=== PATIENT | male | born 2000 | race Caucasian/White ===

== ENCOUNTER 2020-03-18 07:33 | Emergency (ER) | payer OTHER ==
[2020-03-18 07:42] VITALS: BP 111/67
--- NOTE | 2020-03-18 07:52 | ED Physician Documentation ---
PD HPI UPPER EXT INJURY - Stated complaint Stated Complaint: BURN LT HAND - Chief complaint Chief Complaint: Burn - History obtained from History obtained from: Patient - History of Present Illness Location: Left, Hand Type of injury: Burn (accidentally put hand on still hot stovetop (electric), with yi on palm and fingers. Hurting today, so hard to do work. Referred to ER.) Worsened by: Moving, Palpating Associated symptoms: No: Weakness, Numbness Similar symptoms before: Has not had sx before Review of Systems Constitutional: denies: Fever Nose: denies: Rhinorrhea / runny nose, Congestion Throat: denies: Sore throat Respiratory: denies: Cough Neurologic: denies: Focal weakness, Numbness PD PAST MEDICAL HISTORY - Past Medical History Past Medical History: No - Present Medications Home Medications: Ambulatory Orders Medication Instructions Recorded Confirmed No Known Home Medications 03/18/20 03/18/20 - Allergies Allergies/Adverse Reactions: Allergies Allergy/AdvReac Type Severity Reaction Status Date / Time No Known Drug Allergies Allergy Verified 03/18/20 07:41 PD ED PE NORMAL - Vitals Vital signs reviewed: Yes - General General: Alert and oriented X 3, No acute distress, Well developed/nourished - Derm Derm: Normal color, Warm and dry - Extremities Extremities: Other (The right correction left palm and distal phalanges show patterned partial-thickness yi with some mild blistering and circular pattern consistent with a electric stovetop. There are no full-thickness yi. The do not cross flexion creases. He has normal sensation in the fingertips. He is [age]) - Neuro Neuro: No motor deficit, No sensory deficit Results - Vitals Vitals: Vital Signs - 24 hr 03/18/20 07:37 Temperature 36.2 C L Heart Rate 51 L Respiratory 16 Rate Blood Pressure 111/67 O2 Saturation 100 Oxygen O2 Source Room air PD MEDICAL DECISION MAKING - ED course Complexity details: considered differential (Partial-thickness yi. They look like they will heal okay. Mainly they are hindering use of his hand and you supposed to be working today. He is given a work note for couple of days.), d/w patient Departure - Departure Disposition: 01 Home, Self Care Clinical Impression: Burn, hands, second degree Qualifiers: Encounter type: initial encounter Burn of hand location: multiple sites Laterality: left Qualified Code(s): T23.292A - Burn of second degree of multiple sites of left wrist and hand, initial encounter Condition: Stable Record reviewed to determine appropriate education?: Yes Instructions: ED Burn D 2nd Follow-Up: CARINE Cummins [Provider Group] Comments: Minimal to no use of the left hand for 2 days due to the burn and tenderness. Keep it bandaged for comfort. Ibuprofen 3 times a day. Add Tylenol if needed. Recheck if signs of infection. Forms: Activity restrictions Discharge Date/Time: 03/18/20 08:31
[2020-03-18] MEDS ORDERED: ACETAMINOPHEN 325 MG TABLET PO STA (08:01)
[2020-03-18] MEDS ORDERED: IBUPROFEN 600 MG TABLET PO STA (08:01)
[2020-03-18] MEDS ORDERED: BACITRACIN ZINC OINT 1 PACKET TOP STA (08:01)
== END 2020-03-18 08:31 | disposition home or self-care (01) ==
LOC: ED 07:33
DX: T23.252A Burn of second degree of left palm, initial encounter (principal); T23.232A Burn of second degree of multiple left fingers (nail), not including thumb, initial encounter; X15.0XXA Contact with hot stove (kitchen), initial encounter
CPT/HCPCS: 99282; 99283; A9270

== ENCOUNTER 2020-12-11 03:30 | Emergency (ER) | payer OTHER ==
[2020-12-11 03:59] VITALS: BP 124/56
--- NOTE | 2020-12-11 04:11 | ED Physician Documentation ---
PD HPI LOWER EXT INJURY - Stated complaint Stated Complaint: R KNEE PX - Chief complaint Chief Complaint: Trauma Ext - History obtained from History obtained from: Patient - History of Present Illness PD HPI LOW EXT INJURY LOCATION: Right, Knee Type of injury: Other (carrying his ) Where injury occurred: Home Timing - onset: Today Timing - duration: Hours Timing - details: Abrupt onset, Still present Improved by: Rest, Immobilization Worsened by: Moving, Palpating Associated symptoms: Swelling. No: Weakness, Numbness, Tingling Contributing factors: No: Anticoagulated Similar symptoms before: Diagnosis (knee sprain) Recently seen: Not recently seen - Additional information Additional information: 20-year-old male reports that he was carrying his today when his knee gave out on him. He states that he felt that it bent the wrong way and this is something that has happened to him 4 times previously. Initially had this happen when he backed into a cart and he ended up being in a knee immobilizer for about 3 months. He is subsequently started physical therapy to increase his strength of his leg and knee and each time this has happened, the length of time required for the knee immobilizer is less and the pain is less. He has not been in to see orthopedics. Review of Systems Constitutional: denies: Fever Throat: denies: Sore throat Respiratory: denies: Cough GI: denies: Vomiting Skin: denies: Rash Musculoskeletal: reports: Joint pain, Joint swelling, Pain with weight bearing. denies: Neck pain, Back pain Neurologic: denies: Generalized weakness, Focal weakness, Numbness PD PAST MEDICAL HISTORY - Past Medical History Past Medical History: Yes Psych: Depression - Past Surgical History Past Surgical History: No - Present Medications Home Medications: Ambulatory Orders Medication Instructions Recorded Confirmed DULoxetine [Cymbalta] 40 mg PO DAILY 12/11/20 12/11/20 - Allergies Allergies/Adverse Reactions: Allergies Allergy/AdvReac Type Severity Reaction Status Date / Time No Known Drug Allergies Allergy Verified 12/11/20 03:59 - Social History Does the pt smoke?: Yes Smoking Status: Current every day smoker Does the pt drink ETOH?: No Does the pt have substance abuse?: No - Immunizations Immunizations are current?: Yes - POLST Patient has POLST: No PD ED PE NORMAL - Vitals Vital signs reviewed: Yes (normal ) - General General: Alert and oriented X 3, No acute distress, Well developed/nourished - HEENT HEENT: Atraumatic, PERRL, EOMI - Respiratory Respiratory: No respiratory distress - Derm Derm: Normal color, Warm and dry, No rash - Extremities Extremities: No deformity, No edema, Other (Exam of the right knee demonstrates some mild swelling above the patella the patella patella is lax. There is no laxity to the medial or lateral collateral ligaments the anterior drawer is negative.) - Neuro Neuro: Alert and oriented X 3, copyman 2-12 intact, No motor deficit, No sensory deficit, Normal speech Eye Opening: Spontaneous Motor: Obeys Commands Verbal: Oriented GCS Score: 15 - Psych Psych: Normal mood, Normal affect Results - Vitals Vitals: Vital Signs - 24 hr 12/11/20 03:40 Temperature 36.6 C Heart Rate 65 Respiratory 16 Rate Blood Pressure 124/56 L O2 Saturation 99 Oxygen O2 Source Room air - Rads (name of study) right knee Radiology: Prelim report reviewed (Impression: No acute trauma identified. Loose intra-articular body may be related to osteochondral lesion of the lateral femoral condyle. If not previously evaluated, an MRI is recommended for further assessment.), EMP read indepedently, See rad report PD MEDICAL DECISION MAKING - ED course Complexity details: reviewed old records, reviewed results, re-evaluated patient, considered differential, d/w patient ED course: 21-year-old male with recurrent knee sprain is again injured his knee and on examination today we are finding stable ligaments and a loose intra-articular b ruth that appears to be under the patella. The patient is comfortable back into a knee immobilizer and I have recommended he have an MR done of his knee and I have recommended he follow-up with his primary to get this started with an orthopedic follow-up. Departure - Departure Disposition: 01 Home, Self Care Clinical Impression: Knee injury Qualifiers: Encounter type: initial encounter Laterality: right Qualified Code(s): S89.91XA - Unspecified injury of right lower leg, initial encounter Condition: Stable Instructions: ED Sprain Knee Follow-Up: CARINE Cummins [Provider Group] [facility] [Provider Group] Comments: A in the emergency department appears you have sprained your knee and the recommendation is to wear the knee immobilizer as needed until you are able to walk without pain or feeling of instability. On your plain film x-ray there is a loose intra-articular body or a small bone that does not belong underneath the patella. A follow-up MRI of your knee is recommended and this can be ordered by your primary care doctor at [facility]. A follow-up with orthopedics is recommended. Forms: Activity restrictions
--- NOTE | 2020-12-11 11:11 | XRAY Report ---
PROCEDURE: Knee 4 View RT INDICATIONS: patellar dislocation (spont reduced) TECHNIQUE: 3 views of the right knee(s) were acquired. COMPARISON: None. FINDINGS: Bones: No fractures or dislocations. There is a subtle focus of sclerosis in the subchondral portion of the lateral femoral condyle. Soft tissues: No joint effusion. No suspicious soft tissue calcifications. IMPRESSION: No visualized acute fracture or dislocation. However, occult injury cannot be excluded. Recommend short interval imaging follow-up in 7-10 days as clinically indicated for additional evalua tion. Loose intra-articular body and/or osteochondral lesion of lateral femoral condyle as above. As clinic ally indicated, MRI may be obtained for additional evaluation. The above findings are concordant with preliminary report. Reviewed by: Nasima Potter MD on 12/11/2020 11:10 AM PDT Approved by: Nasima Potter MD on 12/11/2020 11:10 AM PDT Station ID: [id number]
== END 2020-12-11 05:12 | disposition home or self-care (01) ==
LOC: ED 03:30
DX: S89.91XA Unspecified injury of right lower leg, initial encounter (principal); X50.1XXA Overexertion from prolonged static or awkward postures, initial encounter; Y93.89 Activity, other specified; Y92.009 Unspecified place in unspecified non-institutional (private) residence as the place of occurrence of the external cause; F17.200 Nicotine dependence, unspecified, uncomplicated
CPT/HCPCS: 99282; 99283

== ENCOUNTER 2022-01-17 17:00 | Emergency (ER) | payer OTHER ==
[2022-01-17 17:22] VITALS: BP 122/65
[2022-01-17 17:36] LABS: BASOPHILS # (AUTO) 0.1 10^3/uL (0.0-0.1); BASOPHILS % (AUTO) 1.1 %; EOSINOPHILS # (AUTO) 0.2 10^3/uL (0.0-0.7); EOSINOPHILS % (AUTO) 2.8 %; HCT - HEMATOCRIT 44.5 % (42.0-52.0); HGB - HEMOGLOBIN 14.5 g/dL (14.0-18.0); LYMPHOCYTES # (AUTO) 1.5 10^3/uL (1.5-3.5); LYMPHOCYTES % (AUTO) 24.9 %; MEAN CORPUSCULAR HEMOGLOBIN 29.5 pg (27.0-31.0); MEAN CORPUSCULAR HGB CONC 32.6 g/dL (32.0-36.0); MEAN CORPUSCULAR VOLUME 90.6 fL (80.0-94.0); MEAN PLATELET VOLUME 10.4 fL (7.4-11.4); MONOCYTES # (AUTO) 0.5 10^3/uL (0.0-1.0); MONOCYTES % (AUTO) 7.8 %; NEUTROPHILS # (AUTO) 3.9 10^3/uL (1.5-6.6); NEUTROPHILS % (AUTO) 63.2 %; PLT - PLATELET COUNT 202 10^3/uL (130-450); RED BLOOD COUNT 4.91 10^6/uL (4.70-6.10); WHITE BLOOD COUNT 6.1 x10^3/uL (4.8-10.8)
--- NOTE | 2022-01-17 17:42 | ED Physician Documentation ---
PD HPI MHE - Stated complaint Stated Complaint: SI - Chief complaint Chief Complaint: MHE - History obtained from History obtained from: Patient - Additional information Additional information: 21-year-old gentleman with history of depression presents from [place] [employer] [place]. He has been suicidal with thoughts of self cutting today. He has self cut before but it was not particularly for self-harm but today was with suicidal ideation. Review of Systems Ten Systems: 10 systems reviewed and negative Constitutional: reports: Reviewed and negative Cardiac: reports: Reviewed and negative Respiratory: reports: Reviewed and negative PD PAST MEDICAL HISTORY - Past Medical History Psych: Depression - Past Surgical History Past Surgical History: No - Present Medications Home Medications: Ambulatory Orders Medication Instructions Recorded Confirmed buPROPion [Wellbutrin Xl] 300 mg PO DAILY 01/17/22 01/17/22 busPIRone [Buspar] 10 mg PO TID 01/17/22 01/17/22 - Allergies Allergies/Adverse Reactions: Allergies Allergy/AdvReac Type Severity Reaction Status Date / Time No Known Drug Allergies Allergy Verified 01/17/22 17:22 - Social History Does the pt smoke?: Yes Smoking Status: Current every day smoker Does the pt drink ETOH?: No Does the pt have substance abuse?: No - Immunizations Immunizations are current?: Yes - POLST Patient has POLST: No PD ED PE NORMAL - Vitals Vital signs reviewed: Yes - General General: Alert and oriented X 3, No acute distress - HEENT HEENT: PERRL, EOMI - Neck Neck: Supple, no meningeal sign, No bony TTP - Cardiac Cardiac: RRR, No murmur - Respiratory Respiratory: No respiratory distress, Clear bilaterally - Abdomen Abdomen: Normal bowel sounds, Soft, Non tender - Back Back: No CVA TTP, No spinal TTP - Derm Derm: Normal color, Warm and dry - Extremities Extremities: Other (Old well-healed self cutting scars on the left forearm) - Neuro Neuro: Alert and oriented X 3, Normal speech Results - Vitals Vitals: Vital Signs - 24 hr 01/17/22 17:06 Temperature 36.8 C Heart Rate 68 Respiratory 14 Rate Blood Pressure 122/65 O2 Saturation 100 Oxygen O2 Source Room air - Labs Labs: Laboratory Tests 01/17/22 01/17/22 01/17/22 17:23 17:23 17:30 WBC 6.1 RBC 4.91 Hgb 14.5 Hct 44.5 MCV 90.6 MCH 29.5 MCHC 32.6 RDW 12.0 Plt Count 202 MPV 10.4 Neut # (Auto) 3.9 Lymph # (Auto) 1.5 [place] # (Auto) 0.5 Eos # (Auto) 0.2 Baso # (Auto) 0.1 Absolute Nucleated RBC 0.00 Nucleated RBC % 0.0 Sodium Potassium Chloride Carbon Dioxide Anion Gap BUN Creatinine Estimated GFR (MDRD) Glucose Calcium Total Bilirubin AST ALT Alkaline Phosphatase Total Protein Albumin Globulin Albumin/Globulin Ratio Lipase TSH Urine Color YELLOW Urine Clarity CLEAR Urine pH 6.0 Ur Specific [place] 1.025 Urine Protein NEGATIVE Urine Glucose (UA) NEGATIVE Urine Ketones NEGATIVE Urine Occult Blood NEGATIVE Urine Nitrite NEGATIVE Urine Bilirubin NEGATIVE Urine Urobilinogen 0.2 (NORMAL) Ur Leukocyte Esterase NEGATIVE Ur Microscopic Review NOT INDICATED Urine Culture Comments NOT INDICATED Salicylates Urine Opiates Screen NEGATIVE Ur Oxycodone Screen NEGATIVE Urine Methadone Screen NEGATIVE Ur Propoxyphene Screen NEGATIVE Acetaminophen Ur Barbiturates Screen NEGATIVE Ur Tricyclics Screen NEGATIVE Ur Phencyclidine Scrn NEGATIVE Ur Amphetamine Screen NEGATIVE U Methamphetamines Scrn NEGATIVE U Benzodiazepines Scrn NEGATIVE Urine Cocaine Screen NEGATIVE U Cannabinoids Screen NEGATIVE Ethyl Alcohol SARS-CoV-2 (PCR) NOT DETECTED 01/17/22 01/17/22 17:30 17:30 WBC RBC Hgb Hct MCV MCH MCHC RDW Plt Count MPV Neut # (Auto) Lymph # (Auto) [place] # (Auto) Eos # (Auto) Baso # (Auto) Absolute Nucleated RBC Nucleated RBC % Sodium 139 Potassium 4.6 Chloride 102 Carbon Dioxide 27 Anion Gap 10.0 BUN 13 Creatinine 0.9 Estimated GFR (MDRD) 107 Glucose 97 Calcium 9.3 Total Bilirubin 0.3 AST 24 ALT 36 Alkaline Phosphatase 48 Total Protein 7.4 Albumin 4.3 Globulin 3.1 Albumin/Globulin Ratio 1.4 Lipase 30 TSH 1.43 Urine Color Urine Clarity Urine pH Ur Specific [place] Urine Protein Urine Glucose (UA) Urine Ketones Urine Occult Blood Urine Nitrite Urine Bilirubin Urine Urobilinogen Ur Leukocyte Esterase Ur Microscopic Review Urine Culture Comments Salicylates < 6.0 Urine Opiates Screen Ur Oxycodone Screen Urine Methadone Screen Ur Propoxyphene Screen Acetaminophen < 10 L Ur Barbiturates Screen Ur Tricyclics Screen Ur Phencyclidine Scrn Ur Amphetamine Screen U Methamphetamines Scrn U Benzodiazepines Scrn Urine Cocaine Screen U Cannabinoids Screen Ethyl Alcohol < 5.0 SARS-CoV-2 (PCR) PD MEDICAL DECISION MAKING - ED course ED course: 21-year-old gentleman presents with active suicidal ideation. He is medically clear for psychiatric treatment and he was accepted graciously by Dr. Thompson, behavioral health specialist to [facility] at approximately 7 PM and cobras were completed. Departure - Departure Disposition: 65 Psych Hosp/Unit DC/Xfer Clinical Impression: Anxiety, Depression Condition: Stable
[2022-01-17 17:43] LABS: MUDS CUTOFF CONCENTRATIONS CUTOFF CONC BELOW:
[2022-01-17 17:51] LABS: ACETAMINOPHEN < 10 ug/mL (10-30); ALBUMIN 4.3 g/dL (3.2-5.5); ALBUMIN/GLOBULIN RATIO 1.4 (1.0-2.2); ALKALINE PHOSPHATASE 48 IU/L (42-121); ALT ALANINE AMINOTRANSFERASE 36 IU/L (10-60); AST ASPARTATE AMINOTRANSFERASE 24 IU/L (10-42); BILIRUBIN,TOTAL 0.3 mg/dL (0.2-1.0); BUN - BLOOD UREA NITROGEN 13 mg/dL (6-20); CALCIUM 9.3 mg/dL (8.5-10.3); CARBON DIOXIDE - CO2 27 mmol/L (21-32); CHLORIDE 102 mmol/L (101-111); CREATININE 0.9 mg/dL (0.6-1.2); ETOH - ETHANOL < 5.0 mg/dL; GFR - MDRD 107 (>89); GLUCOSE 97 mg/dL (70-100); LIPASE 30 U/L (22-51); POTASSIUM 4.6 mmol/L (3.5-5.0); SALICYLATE < 6.0 mg/dL; SODIUM 139 mmol/L (135-145); TOTAL PROTEIN 7.4 g/dL (6.7-8.2)
[2022-01-17 17:57] LABS: BILIRUBIN,URINE NEGATIVE (NEGATIVE); CLARITY,URINE CLEAR (CLEAR); GLUCOSE, URINE (UA) NEGATIVE (NEGATIVE); KETONES,URINE (UA) NEGATIVE (NEGATIVE); LEUKOCYTE ESTERASE, URINE NEGATIVE (NEGATIVE); NITRITE,URINE NEGATIVE (NEGATIVE); OCCULT BLOOD,URINE NEGATIVE (NEGATIVE); PROTEIN,URINE NEGATIVE (NEGATIVE); UROBILINOGEN,URINE 0.2 (NORMAL) E.U./dL (NORMAL)
[2022-01-17 18:09] LABS: AMPHETAMINE SCREEN,URINE NEGATIVE (NEGATIVE); BARBITURATE SCREEN,UR NEGATIVE (NEGATIVE); BENZODIAZEPINES SCREEN, URINE NEGATIVE (NEGATIVE); COCAINE SCREEN URINE NEGATIVE (NEGATIVE); METHADONE SCREEN, URINE NEGATIVE (NEGATIVE); METHAMPHETAMINES SCREEN, URINE NEGATIVE (NEGATIVE); OPIATE SCREEN, URINE NEGATIVE (NEGATIVE); OXYCODONE SCREEN, URINE NEGATIVE (NEGATIVE); PROPOXYPHENE SCREEN, URINE NEGATIVE (NEGATIVE); THC CANNABINOID SCREEN, URINE NEGATIVE (NEGATIVE); TRICYCLIC ANTIDEPRESSANT,URINE NEGATIVE (NEGATIVE)
== END 2022-01-17 20:45 ==
LOC: EDUNIT# → ED 17:00
DX: R45.851 Suicidal ideations (principal); F41.9 Anxiety disorder, unspecified; F32.A Depression, unspecified; F17.200 Nicotine dependence, unspecified, uncomplicated; Z20.822 Contact with and (suspected) exposure to COVID-19
CPT/HCPCS: 36415; 80053; 80306; 80307; 80320; 80329; 81001; 81003; 83690; 84443; 85025; 87086; 99283; 99285

== ENCOUNTER 2022-05-02 07:06 | Outpatient (CLI) | payer OTHER ==
--- NOTE | 2022-05-02 12:02 | MRI Report ---
PROCEDURE: Knee RT W/O INDICATIONS: BILATERAL KNEE PAIN TECHNIQUE: Noncontrast sagittal PD fast spin echo and T2 fast spin echo with fat saturation, sagittal 3-D gradie nt sequence with fat saturation; coronal T1 spin echo and PD fast spin echo with fat saturation, and axial PD fast spin echo with fat saturation through the knee. COMPARISON: Right knee radiograph dated 12/11/2020. FINDINGS: Image quality: Excellent. Menisci: The medial meniscus is intact. Signal abnormality involving anterior horn of lateral menisc us extending to superior articulating surface is seen suggestive of focal tear in this area. The meni scal root ligaments appear intact. Cruciate ligaments: The anterior and posterior cruciate ligaments appear intact. Medial structures: Low-grade proximal MCL sprain is seen near its femoral insertion. The posterior o blique ligament, semimembranosus tendon insertions, and oblique popliteal ligament, and meniscocapsul ar junction appear intact. Visualized portions of the pes anserinus tendons appear normal. No abnor mal bursal fluid. Lateral structures: The lateral collateral ligament, long and short heads of the biceps femoris tend on appear intact. The popliteus tendon appears normal; the popliteofibular ligament appears intact. Iliotibial band appears normal. Anterior structures: The quadriceps and patellar tendons appear intact. Patellar alignment is paola l. No femoral trochlear dysplasia or ventral trochlear prominence. No edema in the infrapatellar fa t pad. Bones and cartilage: No bone marrow contusions or fractures. The cartilage of the medial and latera l femorotibial compartments appears normal in thickness. Low to moderate grade focal area of chondrom alacia involving lateral facet of patella cartilage near apex is seen with underlying small osteochon dral injury. Joint space: There is small amount of joint fluid. No Chavez's cyst. Normal appearing synovial plic ae are incidentally noted. IMPRESSION: 1. Focal complex tear involving anterior horn of lateral meniscus extending to superior articulating surface. No evidence of medial meniscal tear. 2. Cruciate ligaments are intact. Low-grade proximal MCL sprain. 3. 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 No fracture or dislocation. Small joint ef fusion, no loose bodies. Reviewed by: Simba Hutchins MD on 05/02/2022 12:00 PM PDT Approved by: Simba Hutchins MD on 05/02/2022 12:00 PM PDT Station ID: [id number]
--- NOTE | 2022-05-02 12:13 | MRI Report ---
PROCEDURE: Knee LT W/O INDICATIONS: BILATERAL KNEE PAIN TECHNIQUE: Noncontrast sagittal PD fast spin echo and T2 fast spin echo with fat saturation, sagittal 3-D gradie nt sequence with fat saturation; coronal T1 spin echo and PD fast spin echo with fat saturation, and axial PD fast spin echo with fat saturation through the knee. COMPARISON: None. FINDINGS: Image quality: Excellent. Menisci: The medial and lateral menisci demonstrate normal morphology and internal signal. The meni scal root ligaments appear intact. Cruciate ligaments: The anterior and posterior cruciate ligaments appear intact. Medial structures: Low-grade proximal medial collateral ligament sprain at its insertion on femoral c ondyle is seen. The posterior oblique ligament, semimembranosus tendon insertions, and oblique popli teal ligament, and meniscocapsular junction appear intact. Visualized portions of the pes anserinus tendons appear normal. No abnormal bursal fluid. Lateral structures: The lateral collateral ligament, long and short heads of the biceps femoris tend on appear intact. The popliteus tendon appears normal; the popliteofibular ligament appears intact. Iliotibial band appears normal. Anterior structures: The quadriceps and patellar tendons appear intact. Patellar alignment is paola l. No femoral trochlear dysplasia or ventral trochlear prominence. No edema in the infrapatellar fa t pad. Bones and cartilage: No bone marrow contusions or fractures. The cartilage of the medial and latera l femorotibial compartments, as well as the patellofemoral compartment, appears normal in thickness. Joint space: There is small knee joint fluid. No Chavez's cyst. Normal appearing synovial plicae ar e incidentally noted. IMPRESSION: 1. Low-grade proximal MCL sprain. Cruciate ligaments are intact. 2. No evidence of focal meniscal tear. 3. No marrow edema. No fracture or dislocation. Articulating cartilages are intact. Reviewed by: Simba Hutchins MD on 05/02/2022 12:12 PM PDT Approved by: Simba Hutchins MD on 05/02/2022 12:12 PM PDT Station ID: [id number]
== END 2022-05-02 07:07 | disposition home or self-care (01) ==
LOC: DI 07:06
PROVIDERS: ATTEND Family Medicine
DX: S83.271A Complex tear of lateral meniscus, current injury, right knee, initial encounter (principal); M22.41 Chondromalacia patellae, right knee; S83.411A Sprain of medial collateral ligament of right knee, initial encounter; M25.461 Effusion, right knee; S83.412A Sprain of medial collateral ligament of left knee, initial encounter

== ENCOUNTER 2023-11-20 16:17 | Emergency (ER) | payer OTHER ==
--- NOTE | 2023-11-20 16:34 | ED Physician Documentation ---
PD HPI MHE - Stated complaint Stated Complaint: SI - Chief complaint Chief Complaint: MHE - History obtained from History obtained from: Patient - Additional information Additional information: 23-year-old goes by Bliss, she/her pronouns. Has a history of depression. Was not able to fill her antidepressant and stopped it 2 weeks ago. Has had chronic suicidal ideation but more acutely with plan to self cut over the last 2 days. PD PAST MEDICAL HISTORY - Past Medical History Past Medical History: Yes Psych: Depression - Past Surgical History Past Surgical History: No - Present Medications Home Medications: Ambulatory Orders Medication Instructions Recorded Confirmed buPROPion [Wellbutrin Xl] 300 mg PO DAILY 01/17/22 01/17/22 busPIRone [Buspar] 10 mg PO TID 01/17/22 01/17/22 ARIPiprazole [Abilify] 10 mg PO DAILY 11/20/23 11/20/23 - Allergies Allergies/Adverse Reactions: Allergies Allergy/AdvReac Type Severity Reaction Status Date / Time No Known Drug Allergies Allergy Verified 11/20/23 16:33 - Social History Does the pt smoke?: Yes Smoking Status: Current every day smoker Does the pt drink ETOH?: No Does the pt have substance abuse?: No - Immunizations Immunizations are current?: Yes - POLST Patient has POLST: No PD ED PE NORMAL - Vitals Vital signs reviewed: Yes - General General: Alert and oriented X 3, Other (Slightly blunted affect) - HEENT HEENT: PERRL, EOMI - Cardiac Cardiac: RRR, No murmur - Respiratory Respiratory: No respiratory distress, Clear bilaterally - Abdomen Abdomen: Non tender - Neuro Neuro: Alert and oriented X 3, Normal speech Results - Vitals Vitals: Vital Signs - 24 hr 11/20/23 16:29 Temperature 36.1 C L Heart Rate 77 Respiratory 16 Rate Blood Pressure 129/76 O2 Saturation 100 Oxygen O2 Source Room air - Labs Labs: Laboratory Tests 11/20/23 11/20/23 11/20/23 16:51 16:51 17:18 WBC 7.4 RBC 4.87 Hgb 14.5 Hct 44.2 MCV 90.8 MCH 29.8 MCHC 32.8 RDW 11.9 L Plt Count 246 MPV 10.4 Neut # (Auto) 4.6 Lymph # (Auto) 1.9 [place] # (Auto) 0.8 Eos # (Auto) 0.1 Baso # (Auto) 0.1 Absolute Nucleated RBC 0.00 Nucleated RBC % 0.0 Sodium 137 Potassium 3.9 Chloride 104 Carbon Dioxide 26 Anion Gap 7.0 BUN 14 Creatinine 0.9 Estimated GFR (MDRD) 105 Glucose 84 Calcium 9.3 Magnesium 1.7 Total Bilirubin 0.3 AST 24 ALT 49 Alkaline Phosphatase 62 Total Creatine Kinase 127 Total Protein 7.3 Albumin 4.2 Globulin 3.1 Albumin/Globulin Ratio 1.4 Lipase 13 TSH 1.48 Urine Color Urine Clarity Urine pH Ur Specific [place] Urine Protein Urine Glucose (UA) Urine Ketones Urine Occult Blood Urine Nitrite Urine Bilirubin Urine Urobilinogen Ur Leukocyte Esterase Urine RBC Urine WBC Ur Squamous Epith Cells Urine Bacteria Ur Microscopic Review Urine Culture Comments Salicylates < 1.5 Urine Opiates Screen Ur Buprenorphine Scrn Ur Oxycodone Screen Urine Methadone Screen Acetaminophen 0.3 Ur Barbiturates Screen Ur Tricyclics Screen Ur Phencyclidine Scrn Ur Amphetamine Screen U Methamphetamines Scrn U Benzodiazepines Scrn Urine Cocaine Screen U Cannabinoids Screen Ur Drug Screen Comment Ethyl Alcohol < 10.0 SARS-CoV-2 (PCR) NOT DETECTED 11/20/23 18:56 WBC RBC Hgb Hct MCV MCH MCHC RDW Plt Count MPV Neut # (Auto) Lymph # (Auto) [place] # (Auto) Eos # (Auto) Baso # (Auto) Absolute Nucleated RBC Nucleated RBC % Sodium Potassium Chloride Carbon Dioxide Anion Gap BUN Creatinine Estimated GFR (MDRD) Glucose Calcium Magnesium Total Bilirubin AST ALT Alkaline Phosphatase Total Creatine Kinase Total Protein Albumin Globulin Albumin/Globulin Ratio Lipase TSH Urine Color YELLOW Urine Clarity CLEAR Urine pH 7.0 Ur Specific [place] 1.010 Urine Protein NEGATIVE Urine Glucose (UA) NEGATIVE Urine Ketones NEGATIVE Urine Occult Blood NEGATIVE Urine Nitrite NEGATIVE Urine Bilirubin NEGATIVE Urine Urobilinogen 0.2 (NORMAL) Ur Leukocyte Esterase SMALL H Urine RBC None Seen Urine WBC 6-10 H Ur Squamous Epith Cells FEW Squamous Urine Bacteria Rare Ur Microscopic Review INDICATED Urine Culture Comments INDICATED Salicylates Urine Opiates Screen NEGATIVE Ur Buprenorphine Scrn NEGATIVE Ur Oxycodone Screen NEGATIVE Urine Methadone Screen NEGATIVE Acetaminophen Ur Barbiturates Screen NEGATIVE Ur Tricyclics Screen NEGATIVE Ur Phencyclidine Scrn NEGATIVE Ur Amphetamine Screen NEGATIVE U Methamphetamines Scrn NEGATIVE U Benzodiazepines Scrn NEGATIVE Urine Cocaine Screen NEGATIVE U Cannabinoids Screen NEGATIVE Ur Drug Screen Comment CUTOFF CONC BELOW: Ethyl Alcohol SARS-CoV-2 (PCR) PD Medical Decision Making - ED course ED course: 23-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 We called [facility] after initial lab testing done and they were full and could not accept the patient. As such telepsych consultation was placed for restratification and potential placement. CBC, CMP, and blood toxicology testing was normal/negative. Active duty 23-year-old who is suicidal with plan. Agreeable to inpatient hospitalization. Unfortunately [facility] was full and so telepsych saw her and agreed with inpatient status. Recommended Abilify 10 mg a day and Wellbutrin XL 300 mg a day pending placement. Departure - Departure Disposition: 65 Psych Hosp/Unit DC/Xfer Clinical Impression: Suicidal ideation Condition: Stable Forms: PCP List
[2023-11-20 17:14] LABS: MAGNESIUM 1.7 mg/dL (1.7-2.3)
[2023-11-20 17:21] LABS: ALBUMIN 4.2 g/dL (3.2-5.5); ALBUMIN/GLOBULIN RATIO 1.4 (1.0-2.2); ALKALINE PHOSPHATASE 62 IU/L (42-121); ALT ALANINE AMINOTRANSFERASE 49 IU/L (10-60); AST ASPARTATE AMINOTRANSFERASE 24 IU/L (10-42); BILIRUBIN,TOTAL 0.3 mg/dL (0.2-1.0); BUN - BLOOD UREA NITROGEN 14 mg/dL (6-20); CALCIUM 9.3 mg/dL (8.5-10.3); CARBON DIOXIDE - CO2 26 mmol/L (21-32); CHLORIDE 104 mmol/L (101-111); CK- CREATINE KINASE 127 IU/L (30-223); CREATININE 0.9 mg/dL (0.6-1.3); ETOH - ETHANOL < 10.0 mg/dL; GFR - MDRD 105 (>89); GLUCOSE 84 mg/dL (74-104); LIPASE 13 U/L (11-82); POTASSIUM 3.9 mmol/L (3.5-4.5); SODIUM 137 mmol/L (135-145); TOTAL PROTEIN 7.3 g/dL (6.4-8.9)
[2023-11-20 17:26] LABS: BASOPHILS # (AUTO) 0.1 10^3/uL (0.0-0.1); BASOPHILS % (AUTO) 0.9 %; EOSINOPHILS # (AUTO) 0.1 10^3/uL (0.0-0.7); EOSINOPHILS % (AUTO) 1.9 %; HCT - HEMATOCRIT 44.2 % (42.0-52.0); HGB - HEMOGLOBIN 14.5 g/dL (14.0-18.0); LYMPHOCYTES # (AUTO) 1.9 10^3/uL (1.5-3.5); LYMPHOCYTES % (AUTO) 24.9 %; MEAN CORPUSCULAR HEMOGLOBIN 29.8 pg (27.0-31.0); MEAN CORPUSCULAR HGB CONC 32.8 g/dL (32.0-36.0); MEAN CORPUSCULAR VOLUME 90.8 fL (80.0-94.0); MEAN PLATELET VOLUME 10.4 fL (7.4-11.4); MONOCYTES # (AUTO) 0.8 10^3/uL (0.0-1.0); MONOCYTES % (AUTO) 10.8 %; NEUTROPHILS # (AUTO) 4.6 10^3/uL (1.5-6.6); NEUTROPHILS % (AUTO) 61.2 %; PLT - PLATELET COUNT 246 10^3/uL (130-450); RED BLOOD COUNT 4.87 10^6/uL (4.70-6.10); RED CELL DISTRIBUTION WIDTH 11.9 % (12.0-15.0); WHITE BLOOD COUNT 7.4 x10^3/uL (4.8-10.8)
[2023-11-20 17:30] LABS: THYROID STIMULATING HORMONE 1.48 uIU/mL (0.34-5.60)
[2023-11-20 17:42] LABS: ACETAMINOPHEN 0.3 ug/mL
[2023-11-20 17:43] LABS: SALICYLATE < 1.5 mg/dL
[2023-11-20 19:04] LABS: BILIRUBIN,URINE NEGATIVE (NEGATIVE); GLUCOSE, URINE (UA) NEGATIVE (NEGATIVE); KETONES,URINE (UA) NEGATIVE (NEGATIVE); LEUKOCYTE ESTERASE, URINE SMALL (NEGATIVE); NITRITE,URINE NEGATIVE (NEGATIVE); OCCULT BLOOD,URINE NEGATIVE (NEGATIVE); PROTEIN,URINE NEGATIVE (NEGATIVE); UROBILINOGEN,URINE 0.2 (NORMAL) E.U./dL (NORMAL)
[2023-11-20 19:06] LABS: CLARITY,URINE CLEAR (CLEAR)
[2023-11-20 19:16] LABS: AMPHETAMINE SCREEN,URINE NEGATIVE (NEGATIVE); BARBITURATE SCREEN,UR NEGATIVE (NEGATIVE); BENZODIAZEPINES SCREEN, URINE NEGATIVE (NEGATIVE); BUPRENORPHINE SCREEN, URINE NEGATIVE (NEGATIVE); COCAINE SCREEN URINE NEGATIVE (NEGATIVE); METHADONE SCREEN, URINE NEGATIVE (NEGATIVE); METHAMPHETAMINES SCREEN, URINE NEGATIVE (NEGATIVE); OPIATE SCREEN, URINE NEGATIVE (NEGATIVE); OXYCODONE SCREEN, URINE NEGATIVE (NEGATIVE); THC CANNABINOID SCREEN, URINE NEGATIVE (NEGATIVE); TRICYCLIC ANTIDEPRESSANT,URINE NEGATIVE (NEGATIVE)
[2023-11-20 19:23] LABS: RBC,URINE None Seen /HPF (0-5); SQUAMOUS EPITHELIAL CELL,UR FEW Squamous (<= Few)
[2023-11-20 19:24] LABS: BACTERIA,URINE Rare /HPF (None Seen)
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
[2023-11-20] MEDS: NICOTINE 14 MG PATCH TOP STA (20:47)
--- NOTE | 2023-11-20 23:18 | ED Physician Documentation ---
ED Addendum - Addendum Addendum: 11/20/23 23:17 Patient endorsed to me by Dr. Abdi. She has a place at [place] and is voluntary at this time. Impression 1 depression 2 SI Condition stable Disposition - transfer to inpatient psychiatric care
[2023-11-21 01:44] VITALS: BP 125/84; O2SAT 98
[2023-11-21] MEDS ORDERED: ARIPiprazole 5 MG TABLET PO SCH (09:00)
[2023-11-21] MEDS ORDERED: buPROPion XL 150 MG TABLET PO SCH (09:00)
== END 2023-11-21 02:06 ==
LOC: EDUNIT# → EDSEX → EDBD → ED 16:17
DX: F32.A Depression, unspecified (principal); R45.851 Suicidal ideations; T43.296A Underdosing of other antidepressants, initial encounter; T43.596A Underdosing of other antipsychotics and neuroleptics, initial encounter; Z91.138 Patient's unintentional underdosing of medication regimen for other reason; F17.200 Nicotine dependence, unspecified, uncomplicated
CPT/HCPCS: 36415; 80053; 80143; 80179; 80306; 81001; 82077; 82550; 83690; 83735; 84443; 85025; 87086; 87635; 99285; A9270; G0425; Q3014; 81003